=== PATIENT | female | born 1945 | race Native Hawaiian/Other Pacific Islander ===

== ENCOUNTER 2017-07-02 11:22 | Outpatient (CLI) | payer OTHER ==
[2017-07-02 11:30] VITALS: BP 133/60; TEMP 97.4
[2017-07-02 13:05] VITALS: BP 134/74; TEMP 97.6
== END 2017-07-02 13:05 | disposition home or self-care (01) ==
LOC: INF 11:22
DX: D64.89 Other specified anemias (principal)
CPT/HCPCS: 96365; Q0138

== ENCOUNTER 2017-07-09 10:36 | Outpatient (CLI) | payer OTHER ==
[~2017-07-09] VITALS: Ht 167.6 cm; Wt 72.6 kg
[2017-07-09 10:50] VITALS: BP 108/60; TEMP 98.1
[2017-07-09 12:25] VITALS: BP 117/57
== END 2017-07-09 12:25 | disposition home or self-care (01) ==
LOC: INF 10:36
DX: D64.89 Other specified anemias (principal)
CPT/HCPCS: 96365; Q0138